=== PATIENT | female | born 2000 | race Caucasian/White ===

== ENCOUNTER 2021-07-24 10:14 | Emergency (ER) | payer OTHER, MEDICAID, SELFPAY ==
[2021-07-24 10:33] VITALS: BP 142/99; PULSE 100; RESP 16; TEMP 36.6; O2SAT 99
--- NOTE | 2021-07-24 10:56 | ED.GENADUL_ITS ---
Discharge Plan Disposition Patient Disposition: HOME Condition: Stable Discharge Details Clinical Impression: URI (upper respiratory infection) Primary Care Provider: Silvia Evans ED Provider: Truong Santana Home Meds and New Rx's Prescriptions: Continued buspirone 10 mg tablet 10 mg PO BID Qty: 180 3RF omeprazole 40 mg capsule,delayed release(DR/EC) 40 mg PO DAILY Qty: 90 3RF ParaGard T 380A 380 square mm intrauterine device 1 device intrauterine ONCE 0RF Rx Instructions: as a single dose Discharge Instructions Instructions: Upper Respiratory Infection (ED) Additional Instructions: Feel free to take [id number] cough and cold medication as indicated on packaging. Please take medications that match your symptoms. Also stay well- hydrated and feel free to take acetaminophen or ibuprofen as needed for discomfort. At this time you are pending a send out PCR Covid test and it is recommended that you quarantine until these test results are available. Feel free to return for any new or significant worsening of symptoms, inability to hydrate, or further concerns you might have. If not improving in the next week please follow-up your primary care provider for reassessment. Stand Alone Forms: PENDING COVID-19 TESTING, Work Release Referrals: Silvia Evans, BOILER MECHANIC [Primary Care Provider] - (If not improving in the next week) Discharge Data Discharge Date/Time-TO BE ENTERED AT DEPARTURE: 07/24/21 11:31 Medical Decision Making Patient presenting for cold-like symptoms for the past 4 days. Reports started out with sore throat then having nasal congestion with postnasal drip causing coughing. She does state significant other with similar symptoms but did home Covid testing and was negative. Exam consistent with viral illness. no signs of deep neck space infection ( Retropharyngeal abscess, Carter's angina, Parapharyngeal space infection, Peritonsillar Abscess (CAMPAIGN CONSULTANT)) or Epiglottitis. Patient has no signs of meningitis an is non- toxic with stable appearance. Lung sounds are clear so I doubt pneumonia. Plan to do strep test along with send out Covid test. Otherwise discussed with patient conservative management of symptoms and return and follow-up precautions. HPI General Mode of arrival: ambulatory . Date/Time Provider Initiated Documentation: 07/24/21 10:39 . Limitations to Documentation: no limitations . Information obtained by: patient . History of Present Illness 20 year old F presents to the emergency department with the chief complaint of cold symptoms, described as moderate and similar to prior episodes, with intensity rated at 6. Quality is described as aching, and is localized to the mouth (throat). Patient reports no radiation. Patient started experiencing this day(s) (4) and it has been constant. improves with No relieving factors improve symptom(s), No exacerbating factors reported . Patient notes fever/chills; denies nausea/vomiting. Patient did receive the following treatments prior to arrival, NSAID Related Data Home Medications Medication Instructions Recorded Confirmed copper 380 square mm intrauterine 1 device INTRAUTERINE ONCE 05/18/21 07/25/21 device (ParaGard T 380A) buspirone 10 mg tablet 10 mg PO BID #180 tab 06/06/21 07/25/21 omeprazole 40 mg capsule,delayed 40 mg PO DAILY #90 cap 06/06/21 07/25/21 release Previous Rx's Medication Instructions Recorded buspirone 10 mg tablet 10 mg PO BID #180 tab 06/06/21 omeprazole 40 mg capsule,delayed 40 mg PO DAILY #90 cap 06/06/21 release Allergies Allergy/AdvReac Type Severity Reaction Status Date / Time cephalexin [From Keflex] Allergy Verified 07/24/21 10:38 prednisone Allergy Verified 07/24/21 10:38 propranolol Allergy Verified 07/24/21 10:38 sertraline [From Zoloft] AdvReac Unverified 07/24/21 10:39 topiramate [From Topamax] AdvReac Verified 07/24/21 10:38 General Stated Complaint: RespSymp VINNIE: 4 Review of Systems Constitutional Constitutional: Reports body ache(s), Reports chills, Reports headache(s) and Reports malaise ENT Ears, Nose, Mouth, and Throat: Reports as per HPI, Denies ear discharge, Denies otalgia, Reports headache(s), Reports nasal congestion, Reports nasal discharge, Denies neck pain, Reports sore throat and Denies throat swelling Cardiovascular Cardiovascular: Denies chest pain and Denies dyspnea Respiratory Respiratory: Reports cough and Denies dyspnea Gastrointestinal Gastrointestinal: Denies abdominal pain and Denies diarrhea Musculoskeletal Musculoskeletal: Denies joint swelling and Denies neck pain Integumentary/Breasts Skin/Breast: Denies rash Neurologic Neurologic: Reports headache(s) Allergic/Immunologic Allergic/Immunologic: Denies throat swelling PFSH All Active Problems (Updated 07/24/21 @ 10:56 by Truong Santana NP) URI (upper respiratory infection) (Acute) Borderline personality disorder (Acute) Anxiety (Chronic) Asthma (Chronic) Medical History (Updated 07/24/21 @ 10:56 by Truong Santana NP) Acid reflux History of MRSA infection Hyperglycemia PTSD (post-traumatic stress disorder) Surgical History (Updated 05/18/21 @ 13:10 by Angela Reynoso RN) S/P tonsillectomy (2015) Family History (Updated 05/25/21 @ 09:02 by Nayana Zarco) Father Alcohol use disorder Hypertension Mother Alcohol use disorder Anxiety Depression Arthritis Asthma Maternal Grandmother Cancer Anxiety Arthritis Depression Diabetes Kidney disease Paternal Grandmother Anxiety Arthritis Depression Asthma Social History (Updated 05/18/21 @ 13:12 by Angela Reynoso RN) Smoking/Tobacco Use Status: Former Tobacco Use Tobacco: How many years used: 3 Quit status: has quit before Second Hand Exposure: Yes Smoking risk assessment performed?: Yes Alcohol Intake: former Drug use: Never Substance use type: does not use Adopted: No Caregiver/Support person: No Foster care: No Household members: significant other Housing: apartment Number of Children: 0 Communication Needs: Corrective Lenses Education Level: high school Do you need help understanding health information?: Never 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 Pets and animals: Yes (2) Pets and animals: cat(s) Sexually active: Yes Do you think of yourself as: bisexual Current gender identity: female What is your relationship status?: living with partner How often do you talk on the phone with friends or family?: three or more times per week How often do you get together with friends or relatives?: once per week Do you belong to any clubs or organized social groups?: no Panel score (0-1 are the most socially isolated patients): 2 What type of physical activity do you participate in: walking Duration: other Details: Walking at work Frequency: 5-6 times per week Jill/Methodist: Other Special jill needs: No Seatbelt use: always Helmet use: Yes Helmet use: always Drive intox or ride w/intox driver guard: No Exam Const General: cooperative, comfortable and no acute distress Orientation: alert and awake HENMT Head: normal to inspection, normocephalic and atraumatic Ears: hearing grossly normal bilaterally and TM's normal bilaterally General nose exam: external nose normal Face and sinus: no erythema Mouth: oral mucosae normal, no drooling, no muffled voice and no trismus Throat: posterior oropharynx normal Neck Neck: normal visual inspection, full ROM, no lymphadenopathy, no meningeal signs, trachea midline and supple Resp Effort & Inspection: normal respiratory effort and able to speak in complete sentences Auscultation: clear to auscultation bilaterally Cardio Rate: regular rate Rhythm: regular rhythm Heart Sounds: S1 normal, S2 normal and normal S1 and S2 Skin General skin exam: no rashes or lesions noted and dry skin (warm) Neuro General: patient alert, patient awake, patient oriented x3, gait normal and moves all extremities Cognition: normal cognition Speech: speech normal Course Vital Signs Vital signs: Vital Signs Temperature 36.6 C 07/24/21 10:33 Pulse 100 H 07/24/21 10:33 Respiratory Rate 16 07/24/21 10:33 Blood Pressure 142/99 H 07/24/21 10:33 Pulse Oximetry 99 07/24/21 10:33 Temperature 36.6 C 07/24/21 10:33 Temperature Source Skin 07/24/21 10:33 Pulse 100 H 07/24/21 10:33 Respiratory Rate 16 07/24/21 10:33 Respiratory Effort 07/24/21 10:40 Respiratory Depth Normal 07/24/21 10:40 Blood Pressure 142/99 H 07/24/21 10:33 Blood Pressure Position Supine 07/24/21 10:33 Pulse Oximetry 99 07/24/21 10:33 Oxygen Delivery Method Room Air 07/24/21 10:33 Oxygen Flow Rate 0 07/24/21 10:33 Pain Level 6 07/24/21 10:33
[2021-07-25 12:00] LABS: COVID-19 RT-PCR UVMMC Result Negative (Negative)
== END 2021-07-24 11:31 | disposition home or self-care (01) ==
PROVIDERS: Emergency Provider Nurse Practitioner Family; PCP Nurse Practitioner
DX: J06.9 Acute upper respiratory infection, unspecified (principal); J02.9 Acute pharyngitis, unspecified; R09.81 Nasal congestion; Z20.822 Contact with and (suspected) exposure to COVID-19
CPT/HCPCS: 87880; 99282; U0003; 87081

== ENCOUNTER 2021-10-19 02:34 | Outpatient (CLI) | payer MEDICAID, SELFPAY | END 2021-10-19 02:35 | disposition home or self-care (01) | LOC: LBO 02:34 | PROVIDERS: PCP Nurse Practitioner; Visit Provider Nurse Practitioner | CPT/HCPCS: 36415; 80053; 80061; 83036; 84443; 85025 ==

== ENCOUNTER 2021-10-20 02:59 | Outpatient (CLI) | payer MEDICAID, SELFPAY ==
[2021-10-20 11:11] LABS: Abs Immature Grans 0.04 10^3/uL (0.0-0.06); Absolute Basophil Count 0.03 10^3/uL (0.0-0.2); Absolute Eosinophil Count 0.13 10^3/uL (0.0-0.7); Absolute Lymphocyte Count 2.73 10^3/uL (1.2-3.4); Absolute Monocyte Count 1.02 10^3/uL (0.1-0.8); Absolute Neutrophil Count 6.22 10^3/uL (1.2-6.7); Basophils % 0.3; Eosinophils % 1.3; HCT 34.9 % (36.0-46.0); HGB 11.1 g/dL (11.2-15.7); Immature Grans % 0.4; Lymphocytes % 26.8; MCH 25.2 pg (27.0-33.0); MCHC 31.8 % (32.0-36.0); MCV 79 fL (80-95); MPV 9.3 fL (8.0-11.0); Neutrophils % 61.2; Platelet Count 285 10^3/uL (130-400); RDW-SD 40.2 fL; WBC 10.17 10^3/uL (4.4-10.8)
[2021-10-20 11:48] LABS: Hemoglobin A1C 5.5 % (<5.7)
[2021-10-20 12:40] LABS: ALT 34 U/L (14-59); AST 17 U/L (15-37); Albumin 3.7 g/dL (3.4-5.0); Alkaline Phosphatase 96 U/L (46-116); Anion Gap 8.4 mmol/L (3-11); BUN 10 mg/dL (7-18); Bilirubin, Total 0.4 mg/dL (0.2-1.0); CO2 27.6 mmol/L (21.0-32.0); CREATININE 0.7 mg/dL (0.55-1.02); Calcium 8.2 mg/dL (8.5-10.1); Calculated LDL 77 mg/dL (<100); Chloride 105 mmol/L (98-107); Cholesterol 138 mg/dL (<200); Glucose 85 mg/dL (74-106); HDL Cholesterol 44 mg/dL (40-60); Potassium 3.9 mmol/L (3.5-5.1); Sodium 141 mmol/L (136-145); TSH (W/Ref FT4) 1.67 uIU/mL (0.36-3.74); Total Protein 6.6 g/dL (6.4-8.2); Triglyceride 86 mg/dL (<150)
== END 2021-10-20 03:00 | disposition home or self-care (01) ==
LOC: LBO 03:00
PROVIDERS: PCP Nurse Practitioner; Visit Provider Nurse Practitioner
DX: E11.9 Type 2 diabetes mellitus without complications (principal); J45.909 Unspecified asthma, uncomplicated; E66.9 Obesity, unspecified; Z13.220 Encounter for screening for lipoid disorders
CPT/HCPCS: 36415; 80053; 80061; 83036; 84443; 85025

== ENCOUNTER 2022-11-14 15:12 | Outpatient (REF) | payer MEDICAID, SELFPAY ==
--- NOTE | 2022-11-14 13:50 | PAPFT_PTH ---
PATIENT: Jed Tejeda LOC: [facility] U#:[id number] AGE/SX: 22/F ROOM: RE11/14/[address]: Emili Butler NP : 2000 BED: DIS: 11/14/2022 SPEC #: [id number] RECD: 11/14/22 17:59 STATUS: OTIS REMarcelo #: [id number] RAFI: 11/14/22 13:[address]: Emili Butler NP DEPT: [facility] Cytology RECD BY: Angeles Stafford ENTERED: 11/14/22 17:59 SP TYPE: PAPFT OTHR DR: Silvia Evans APRN Tissues: 1 - CX/ENDOCX FOR PAP SMEARS Procedures: PAP THIN PREP/UVM Screening HPV DNA PROBE Comments: [id number] (CHLAMYDIA/GC)
[2022-11-15 13:56] LABS: Chlamydia Result Negative (Negative); GC Result Negative (Negative)
== END 2022-11-14 15:13 | disposition home or self-care (01) ==
LOC: LBN 15:12
PROVIDERS: PCP Nurse Practitioner; Visit Provider Nurse Practitioner Women's Health
DX: Z11.3 Encounter for screening for infections with a predominantly sexual mode of transmission (principal); Z12.4 Encounter for screening for malignant neoplasm of cervix
CPT/HCPCS: 87491; 87591; 88142; 87624

== ENCOUNTER 2023-04-11 02:56 | Outpatient (CLI) | payer MEDICAID, SELFPAY ==
[2023-04-11 14:53] LABS: Abs Immature Grans 0.02 10^3/uL (0.0-0.06); Absolute Basophil Count 0.03 10^3/uL (0.0-0.2); Absolute Eosinophil Count 0.07 10^3/uL (0.0-0.7); Absolute Monocyte Count 0.69 10^3/uL (0.1-0.8); Absolute Neutrophil Count 5.92 10^3/uL (1.2-6.7); Basophils % 0.3; Eosinophils % 0.8; HCT 33.9 % (36.0-46.0); HGB 10.8 g/dL (11.2-15.7); Immature Grans % 0.2; Lymphocytes % 27.1; MCH 23.6 pg (27.0-33.0); MCHC 31.9 % (32.0-36.0); MCV 74 fL (80-95); MPV 9.3 fL (8.0-11.0); Monocytes % 7.5; Neutrophils % 64.1; Platelet Count 270 10^3/uL (130-400); RBC 4.58 10^6/uL (3.93-5.22); RDW 15.6 % (11.7-14.6); RDW-SD 41.8 fL; WBC 9.23 10^3/uL (4.4-10.8)
[2023-04-11 15:05] LABS: Glucose,1 Hr (Glucola) 92 mg/dL (80-140)
[2023-04-11 15:18] LABS: Diff Comment RBC Morph Reviewed
[2023-04-11 15:19] LABS: Hypochromasia 1+; Microcytosis 1+; Polychromasia Present
[2023-04-11 15:33] LABS: Panorama Kit Sent via Fed Ex
[2023-04-11 15:35] LABS: ALT 26 U/L (14-59); AST 13 U/L (15-37); Albumin 3.2 g/dL (3.4-5.0); Alkaline Phosphatase 85 U/L (46-116); Anion Gap 10.3 mmol/L (3-11); BUN 5 mg/dL (7-18); Bilirubin, Total 0.2 mg/dL (0.2-1.0); CO2 23.7 mmol/L (21.0-32.0); CREATININE 0.7 mg/dL (0.55-1.02); Calcium 8.8 mg/dL (8.5-10.1); Chloride 102 mmol/L (98-107); Estimated GFR 125.33 (mL/min/1.73m2); Glucose 86 mg/dL (74-106); Potassium 3.3 mmol/L (3.5-5.1); Sodium 136 mmol/L (136-145); Total Protein 6.9 g/dL (6.4-8.2)
[2023-04-12 08:45] LABS: Hepatitis C Ab w Rflx HCV PCR Negative (Negative)
[2023-04-12 09:10] LABS: Hepatitis B Surface Ag Negative (Negative)
[2023-04-12 09:36] LABS: HIV-1/2 Ag & Ab Screen Negative (Negative)
[2023-04-12 10:10] LABS: Varicella IgG Antibody Negative (See Note)
[2023-04-12 10:17] LABS: Rubella IgG Ab (UVM) Negative (See Note)
[2023-04-15 14:16] LABS: Syphilis IgG w/Reflex Nonreactive (Nonreactive)
== END 2023-04-11 02:57 | disposition home or self-care (01) ==
PROVIDERS: PCP Nurse Practitioner; Visit Provider Advanced Practice Midwife
DX: Z34.91 Encounter for supervision of normal pregnancy, unspecified, first trimester; I10 Essential (primary) hypertension
CPT/HCPCS: 36415; 80053; 82950; 86787; 86803; 86850; 86900; 86901; 87340; 87389; 85025; 86762; 86780

== ENCOUNTER 2023-04-11 14:01 | Outpatient (REF) | payer MEDICAID, SELFPAY ==
[2023-04-11 15:04] LABS: COMMENT (LAB VIEW ONLY) 63.49 mg/dL; PROTEIN 6.6 mg/dL
[2023-04-11 15:06] LABS: *AMPHETAMINES SCREEN URINE Negative (Negative); *BARBITURATES SCREEN URINE Negative (Negative); *BENZODIAZEPINES SCREEN URINE Negative (Negative); Cannabinoids THC Negative (Negative); Cocaine Screen,Urine Negative (Negative); METHADONE URINE SCREEN Negative (Negative); OPIATES URINE SCREEN Negative (Negative)
[2023-04-11 15:08] LABS: Tricyclic Antidepressants Negative (Negative)
[2023-04-16 07:25] LABS: Buprenorphine Negative ng/mL (Cutoff: 5.0); Norbuprenorphine Negative ng/mL (Cutoff: 2.5)
== END 2023-04-11 14:02 | disposition home or self-care (01) ==
LOC: LBN 14:01
PROVIDERS: PCP Nurse Practitioner; Visit Provider Advanced Practice Midwife
DX: Z34.91 Encounter for supervision of normal pregnancy, unspecified, first trimester (principal); I10 Essential (primary) hypertension
CPT/HCPCS: 80307; 80348; 82565; 84156; 87086

== ENCOUNTER 2023-05-09 01:51 | Outpatient (CLI) | payer MEDICAID, SELFPAY ==
[2023-05-09 15:38] LABS: Panorama Kit Sent via Fed Ex
== END 2023-05-09 01:52 | disposition home or self-care (01) ==
LOC: LBO 01:51
PROVIDERS: PCP Nurse Practitioner; Visit Provider Obstetrics & Gynecology
DX: Z34.92 Encounter for supervision of normal pregnancy, unspecified, second trimester (principal)
CPT/HCPCS: 36415

== ENCOUNTER 2023-05-10 18:35 | Outpatient (REF) | payer MEDICAID, SELFPAY | END 2023-05-10 18:36 | disposition home or self-care (01) | LOC: LBN 18:35 | PROVIDERS: PCP Nurse Practitioner; Visit Provider Obstetrics & Gynecology | DX: Z34.91 Encounter for supervision of normal pregnancy, unspecified, first trimester (principal) | CPT/HCPCS: 87480; 87510; 87660 ==

== ENCOUNTER 2023-06-05 01:52 | Outpatient (CLI) | payer MEDICAID, SELFPAY ==
[2023-06-05 15:51] LABS: Panorama Kit Sent via Fed Ex
== END 2023-06-05 01:53 | disposition home or self-care (01) ==
LOC: LBO 01:52
PROVIDERS: PCP Nurse Practitioner; Visit Provider Advanced Practice Midwife
DX: O28.5 Abnormal chromosomal and genetic finding on antenatal screening of mother (principal); Z36.89 Encounter for other specified antenatal screening; Z3A.19 19 weeks gestation of pregnancy
CPT/HCPCS: 36415

== ENCOUNTER 2023-08-01 13:41 | Outpatient (REF) | payer MEDICAID, SELFPAY ==
[2023-08-01 15:47] LABS: COVID-19 PCR Negative (Negative); Influenza A PCR Negative (Negative); Influenza B PCR Negative (Negative); RSV PCR Negative (Negative)
[2023-08-01 15:48] LABS: Source Nasopharynx
== END 2023-08-01 13:42 | disposition home or self-care (01) ==
LOC: LBN 13:41
PROVIDERS: PCP Nurse Practitioner; Visit Provider Obstetrics & Gynecology
DX: R50.9 Fever, unspecified (principal)
CPT/HCPCS: 87637

== ENCOUNTER 2023-08-06 03:33 | Outpatient (CLI) | payer MEDICAID, SELFPAY ==
[2023-08-06 15:24] LABS: Abs Immature Grans 0.07 10^3/uL (0.0-0.06); Absolute Basophil Count 0.02 10^3/uL (0.0-0.2); Absolute Eosinophil Count 0.05 10^3/uL (0.0-0.7); Absolute Lymphocyte Count 2.35 10^3/uL (1.2-3.4); Absolute Monocyte Count 0.96 10^3/uL (0.1-0.8); Absolute Neutrophil Count 8.84 10^3/uL (1.2-6.7); Basophils % 0.2; Eosinophils % 0.4; HCT 32.2 % (36.0-46.0); HGB 10.3 g/dL (11.2-15.7); Immature Grans % 0.6; Lymphocytes % 19.1; MCH 22.9 pg (27.0-33.0); MCV 72 fL (80-95); MPV 9.3 fL (8.0-11.0); Monocytes % 7.8; Neutrophils % 71.9; Platelet Count 263 10^3/uL (130-400); RBC 4.49 10^6/uL (3.93-5.22); RDW-SD 41.3 fL; WBC 12.29 10^3/uL (4.4-10.8)
[2023-08-06 15:32] LABS: Glucose,1 Hr (Glucola) 81 mg/dL (80-140)
[2023-08-06 15:36] LABS: Diff Comment RBC Morph Reviewed; Hypochromasia 1+; Microcytosis 1+
[2023-08-06 15:37] LABS: Polychromasia Present
== END 2023-08-06 03:34 | disposition home or self-care (01) ==
LOC: LBO 03:33
PROVIDERS: PCP Nurse Practitioner; Visit Provider Obstetrics & Gynecology
DX: Z34.92 Encounter for supervision of normal pregnancy, unspecified, second trimester (principal)
CPT/HCPCS: 36415; 82950; 85025

== ENCOUNTER 2023-08-20 16:12 | Outpatient (REF) | payer MEDICAID, SELFPAY | END 2023-08-20 16:13 | disposition home or self-care (01) | LOC: LBN 16:12 | PROVIDERS: PCP Nurse Practitioner; Visit Provider Obstetrics & Gynecology | DX: O26.893 Other specified pregnancy related conditions, third trimester (principal); N89.8 Other specified noninflammatory disorders of vagina; Z3A.29 29 weeks gestation of pregnancy | CPT/HCPCS: 87480; 87510; 87660 ==

== ENCOUNTER → 2023-09-04 04:11 | Outpatient (CLI) | payer MEDICAID, SELFPAY ==
--- NOTE | 2023-09-04 07:45 | DI.US_ITS ---
Exam(s) US OB DANIE WEIGHT EXAM: US OB DANIE WEIGHT CLINICAL HISTORY: growth,OBESITY,ABNL GENETIC TESTING,o99.210. TECHNIQUE: Transabdominal obstetrical ultrasound performed. COMPARISON: US POCUS EXAM from 03/14/2023 FINDINGS:: Number of fetuses: One. position: Vertex. Placental location: Anterior, grade 1. no evidence of previa. BIOMETRIC DATA: BPD: 87mm = 34+ 6 weeks HC: 304mm = 33+5 weeks AC: 280mm = 32+ 0 weeks FL: 62 mm = 32+ 0 weeks EFW: 1976 Gms = 58% Composite Age: 33+1 weeks MANDI: 21 Oct 2022 Heart Rate: 137BPM Amniotic fluid index: 19.9 cm. Amount of fluid is visually within normal limits. IMPRESSION: size is mildly above the expected gestational age weight is within the expected range. DATA REPOSITORY:
== END ==
PROVIDERS: PCP Nurse Practitioner; Visit Provider Obstetrics & Gynecology
DX: O99.213 Obesity complicating pregnancy, third trimester (principal); O28.5 Abnormal chromosomal and genetic finding on antenatal screening of mother; Z3A.33 33 weeks gestation of pregnancy
CPT/HCPCS: 76816

== ENCOUNTER 2023-10-02 16:22 | Outpatient (REF) | payer MEDICAID, SELFPAY | END 2023-10-02 16:23 | disposition home or self-care (01) | LOC: LBN 16:22 | PROVIDERS: PCP Nurse Practitioner; Visit Provider Obstetrics & Gynecology | DX: Z34.93 Encounter for supervision of normal pregnancy, unspecified, third trimester (principal) | CPT/HCPCS: 87081 ==

== ENCOUNTER 2023-10-18 01:08 | Outpatient (RCR) | payer MEDICAID, SELFPAY ==
[2023-10-10 13:31] LABS: HGB 9.8 g/dL (11.2-15.7)
[2023-10-10] MEDS: IRON SUCROSE COMPLEX 200 MG in Normal Saline 100 ML 440 MG IVPB (13:45)
[2023-10-10] MEDS: Normal Saline Flush 10 ML SYR IVP (13:45)
[2023-10-18] MEDS: Normal Saline Flush 10 ML SYR IVP (13:06)
[2023-10-18 13:17] LABS: HGB 10.2 g/dL (11.2-15.7)
[2023-10-18] MEDS: IRON SUCROSE COMPLEX 200 MG in Normal Saline 100 ML 440 MG IVPB (14:08)
== END 2023-11-08 23:59 | disposition home or self-care (01) ==
LOC: INF 01:08
PROVIDERS: PCP Nurse Practitioner; Visit Provider Obstetrics & Gynecology
DX: O99.013 Anemia complicating pregnancy, third trimester (principal)
CPT/HCPCS: 36415; 96365; 85018; J1756

== ENCOUNTER 2023-10-22 05:14 | Outpatient (CLI) | payer MEDICAID, SELFPAY ==
[2023-10-22 12:05] LABS: Abs Immature Grans 0.08 10^3/uL (0.0-0.06); Absolute Basophil Count 0.03 10^3/uL (0.0-0.2); Absolute Eosinophil Count 0.03 10^3/uL (0.0-0.7); Absolute Lymphocyte Count 2.28 10^3/uL (1.2-3.4); Absolute Monocyte Count 0.73 10^3/uL (0.1-0.8); Absolute Neutrophil Count 7.63 10^3/uL (1.2-6.7); Basophils % 0.3 %; Eosinophils % 0.3 %; HCT 34.9 % (36.0-46.0); HGB 10.6 g/dL (11.2-15.7); Immature Grans % 0.7 %; Lymphocytes % 21.2 %; MCH 22.3 pg (27.0-33.0); MCHC 30.4 % (32.0-36.0); MCV 73 fL (80-95); Monocytes % 6.8 %; Neutrophils % 70.7 %; Platelet Count 230 10^3/uL (130-400); RBC 4.76 10^6/uL (3.93-5.22); RDW 21.2 % (11.7-14.6); RDW-SD 48.7 fL; WBC 10.78 10^3/uL (4.4-10.8)
[2023-10-22 12:28] LABS: Anisocytosis 2+; Diff Comment RBC Morph Reviewed; Microcytosis 1+
== END 2023-10-22 05:15 | disposition home or self-care (01) ==
LOC: LBO 05:14
PROVIDERS: PCP Nurse Practitioner; Visit Provider Obstetrics & Gynecology
DX: O99.213 Obesity complicating pregnancy, third trimester (principal); Z30.09 Encounter for other general counseling and advice on contraception; Z01.818 Encounter for other preprocedural examination; Z01.812 Encounter for preprocedural laboratory examination; Z3A.38 38 weeks gestation of pregnancy
CPT/HCPCS: 36415; 81511; 86850; 86900; 86901; 85025

== ENCOUNTER 2023-10-24 06:00 | Inpatient (IN) | payer MEDICAID, SELFPAY ==
[2023-10-24] VITALS (15 sets, daily range): BP systolic 120–144; BP diastolic 66–102; PULSE 65–90; RESP 16; TEMP 36.6–36.8; O2SAT 97–100; BMI 48.7
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
[2023-10-24] MEDS: AZITHROMYCIN 500 MG in Normal Saline 250 ML 250 MG IVPB (06:57)
[2023-10-24] MEDS: Lactated Ringers 1,000 ML 200 ML IV (06:57)
--- NOTE | 2023-10-24 06:57 | W.PM.PROGNOT ---
Date of Service Date of service: 10/24/23 Time of Service: 06:57 Subjective Subjective Interval history since last seen: Patient seen and examined and chart reviewed this morning. Patient is 100% certain about delivery with bilateral salpingectomy. All questions were answered. Labs reviewed. Stable hemoglobin at 10.6. Will proceed to the OR for primary section with bilateral salpingectomy. All questions answered. Objective Last Vital Signs Temp 98.2 F 10/24/23 06:36 Pulse 90 10/24/23 06:36 Resp 16 10/24/23 06:36 BP 144/102 H 10/24/23 06:36 Pulse Ox 99 10/24/23 06:36 Time Spent with Patient Time Spent with Patient: <25 minutes Time was spent: preparing to see the patient(eg.review tests), obtaining and/or reviewing separately otained hiistory, referring, communicating with other health healthcare economics manager, indepentently interpreting results and counseling the patient
--- NOTE | 2023-10-24 08:32 | FALL_PTH ---
PATIENT: Jed Tejeda LOC: OBS U#:[id number] AGE/SX: 23/F ROOM: OBS.306 RE10/24/[address]: Vandana Diaz DO : 2000 BED: A DIS: 10/26/2023 SPEC #: [id number] RECD: 10/24/23 12:18 STATUS: OTIS REQ #: [id number] RAFI: 10/24/23 08:[address]: Vandana Diaz DEPT: Surgical Specimen RECD BY: Angeles Stafford ENTERED: 10/24/23 12:18 SP TYPE: Viv STRONG DR: Silvia Evans APRN Tissues: 1 - FALLOPIAN TUBE (STERILIZATION) 2 - FALLOPIAN TUBE (STERILIZATION) Procedures: GROSS AND MICRO LEVEL 2 Comments: [id number]
[2023-10-24] MEDS: Bupivacaine 0.25% Pres-Free 30 ML VIAL (08:37)
[2023-10-24] MEDS: Lactated Ringers 1,000 ML 120 ML IV (09:00)
[2023-10-24] MEDS: Oxytocin/Normal Saline 30 UNIT/500 ML BAG 95 UNITS IV (09:00)
--- NOTE | 2023-10-24 09:00 | W.PM.OBCSECT ---
Date of service: 10/24/23 Time of Service: 09:00 Operative Note Operative Note Delivery Method: Scheduled and Primary NTSV>37 Weeks: Yes DATE OF PROCEDURE: 11/13/23 PRE-OP DIAGNOSES: at 39 weeks, declines labor, undesired fertility POST-OP DIAGNOSES: same PROCEDURE: Primary low-transverse section with bilateral salpingectomy SURGEON: Vandana Diaz Assisting Surgeon: Lindy Bermudez Anesthesia: local and spinal Estimated blood loss (mL): 500 Pathology: other (Bilateral fallopian tubes) Complications: None Patient was transported to: floor Patient's condition: stable Indications: Intrauterine at 39 weeks, declines labor, undesired fertility Findings: Normal-appearing tubes, ovaries, uterus. Delivery of a viable female infant. Weight and Apgars per delivery note Procedure Description: After full informed consent was obtained, and again reviewed permanent sterilization, patient was taken the operating suite with an IV running. She was placed in dorsal seated position and spinal anesthesia administered, tested and found to be adequate. She was placed in the dorsal supine position with leftward tilt. She received clindamycin and Zithromax for surgical site infection prophylaxis. She had pneumatic compression stockings for DVT prophylaxis. She was prepped and draped in the usual sterile fashion after vaginal preparation was performed and Rapp catheter inserted. The lower abdomen was infiltrated with quarter percent Marcaine and a Pfannenstiel skin incision was made and carried down to the underlying fascia. The fascia was incised in the midline and fascial incision extended laterally. The rectus muscles were identified and split in the midline. The peritoneum was identified tented up and entered sharply and the peritoneal incision extended superiorly and inferiorly. At this point the bladder blade was inserted and the vesicouterine peritoneum identified tented up and entered sharply and the bladder flap was created. The bladder blade was reinserted and a low transverse uterine incision was made and extended bluntly laterally. There was some difficulty in delivering the vertex through the incision due to unengaged vertex and copious fluid. With gentle fundal pressure, and a Kiwi vacuum extractor, the vertex was delivered through the incision. There was no evidence of nuchal cord and the shoulders followed with ease. Three-vessel cord was noted and delayed cord clamping performed. The female was then handed off to the pediatric group. At this point cord blood sample was obtained and the placenta was manually expressed from the uterus. The uterus then exteriorized and cleared of all clot and debris. The uterine incision was closed in a single layer closure with 0 Vicryl suture in a running locked fashion and noted to be hemostatic. At this point attention was turned to the left fallopian tube which was elevated and cautery transected for removal and a similar procedure carried out on the right fallopian tube. Pedicles were noted to be hemostatic and the uterus returned to the abdomen. Again both tubal ligation pedicles reinspected and noted to be hemostatic and the uterine incision reinspected and noted to be hemostatic. The abdomen was irrigated with copious amounts of normal saline and at this point the fascial incision was closed using 0 Vicryl suture in a running fashion. Subcutaneous tissue irrigated with copious amounts of normal saline and reapproximated with 3-0 Vicryl. Skin edge reapproximated with 4-0 undyed Monocryl suture. Steri-Strips and sterile dressing were placed. The patient was taken to the center with a Rapp catheter in place draining clear yellow urine EBL: 500 mL Fluids: Crystalloid per anesthesia Complications: None apparent Pathology: Bilateral fallopian tubes.
--- NOTE | 2023-10-24 13:03 | W.ANESPOSTOP ---
Postoperative Evaluation Date, Time and Location Date Performed: 10/24/23 Time Performed: 13:00 Patient Location: Obstetrics Vital Signs Most Recent Imported Vital Signs: Most Recent Vital Signs Temp Pulse Resp BP Pulse Ox 36.6 C 65 16 123/75 100 10/24/23 12:45 10/24/23 12:45 10/24/23 12:45 10/24/23 12:45 10/24/23 12:45 Assessment Mental Status: Awake (Alert & Oriented to Patient Baseline) Airway and Respiratory Function: Patent airway with normal (patient baseline) respiratory exam Cardiovascular Function: Hemodynamically Stable Hydration Status: Adequately Hydrated Nausea & Vomiting: No Nausea or Vomiting Pain: Pain is tolerable per patient Peripheral Nerve Block: Patient did not receive a nerve block
[2023-10-24] MEDS: Ketorolac 30 MG/ML VIAL IVP ×2 (14:03→20:09)
[2023-10-24] MEDS: Normal Saline Flush 10 ML SYR IVP (20:10)
[2023-10-25] VITALS (7 sets, daily range): BP systolic 134–157; BP diastolic 83–96; PULSE 82–84; RESP 18–20; TEMP 36.4–36.7; O2SAT 100
[2023-10-25] MEDS: Ketorolac 30 MG/ML VIAL IVP (03:00)
[2023-10-25 06:36] LABS: Abs Immature Grans 0.07 10^3/uL (0.0-0.06); Absolute Basophil Count 0.03 10^3/uL (0.0-0.2); Absolute Lymphocyte Count 3.05 10^3/uL (1.2-3.4); Absolute Monocyte Count 1.04 10^3/uL (0.1-0.8); Basophils % 0.2 %; Eosinophils % 0.1 %; HCT 30.9 % (36.0-46.0); HGB 9.4 g/dL (11.2-15.7); Immature Grans % 0.5 %; Lymphocytes % 22.3 %; MCH 22.9 pg (27.0-33.0); MCHC 30.4 % (32.0-36.0); MCV 75 fL (80-95); MPV 10.6 fL (8.0-11.0); Monocytes % 7.6 %; Neutrophils % 69.3 %; Platelet Count 212 10^3/uL (130-400); RBC 4.11 10^6/uL (3.93-5.22); RDW-SD 53.9 fL; WBC 13.66 10^3/uL (4.4-10.8)
[2023-10-25 06:45] LABS: Absolute Eosinophil Count 0.01 10^3/uL (0.0-0.7); Absolute Neutrophil Count 9.47 10^3/uL (1.2-6.7)
[2023-10-25 07:04] LABS: Anisocytosis 2+; Diff Comment RBC Morph Reviewed; Hypochromasia 1+
[2023-10-25] MEDS: oxyCODONE 5 mg/Acetaminophen 325 mg TAB PO ×2 (08:40→13:30)
--- NOTE | 2023-10-25 08:47 | W.PM.OBPNV1 ---
Date of service: 10/25/23 Time of Service: 08:00 Assessment and Plan Assessment and plan (1) Status post primary low transverse section: Status: Acute Assessment and plan: Pt doing well POD#1 s/p PCS. Routine care. Subjective Subjective Narrative: Pt is doing well POD#1 s/p scheduled PCS. Her pain is well controlled on oral pain meds and she is tolerating a regular diet w/out n/v. +flatus. Out of bed without difficulty. Breast-feeding is going well. Minimal lochia. Exam Physical Exam Vital signs: Temp Pulse Resp BP Pulse Ox 98.0 F 76 16 120/78 98 10/24/23 20:34 10/24/23 20:34 10/24/23 20:34 10/24/23 20:34 10/24/23 20:34 Vital Signs Reviewed: Yes Constitutional Constitutional: no acute distress and cooperative Detailed HEENT Exam Head: Present normocephalic and atraumatic Respiratory Exam Respiratory Exam: Normal Abdominal Exam Abdomen: Tender (mildly) Comments: Incision covered with clean, dry mepilex dressing. Fundal Exam Fundus: Below Umbilicus and Firm Extremities Exam Extremity Exam: Edema (trace) Detailed Neurological Exam Neurological: Present alert, oriented X3 and CN II-XII intact Results Hemoglobin/Hematocrit: Hgb 9.4 g/dL (11.2-15.7) L 10/25/23 06:00 Hct 30.9 % (36.0-46.0) L 10/25/23 06:00 Abnormal Lab Findings: Abnormal Labs 10/25/23 06:00 WBC 13.66 H Hgb 9.4 L Hct 30.9 L MCV 75 L MCH 22.9 L MCHC 30.4 L RDW 22.0 H Absolute Neutrophils 9.47 H Absolute Monocytes 1.04 H
[2023-10-25] MEDS: Ibuprofen 600 MG TAB PO ×3 (10:17→22:44)
[2023-10-25] MEDS: Omeprazole 20 MG CAPCR 40 MG PO (10:21)
[2023-10-25] MEDS: FLUoxetine 10 MG TAB PO (10:21)
[2023-10-25] MEDS: Acetaminophen 325 MG TAB 650 MG PO (19:11)
[2023-10-25] MEDS: Docusate Sodium 100 MG CAP PO (19:11)
[2023-10-26 01:00] VITALS: BP 150/90; PULSE 88
[2023-10-26] MEDS: Acetaminophen 325 MG TAB 650 MG PO (03:28)
[2023-10-26] MEDS: Ibuprofen 600 MG TAB PO ×2 (04:03→10:12)
[2023-10-26 04:13] VITALS: BP 152/90; PULSE 78; TEMP 36.6
[2023-10-26] MEDS: Docusate Sodium 100 MG CAP PO (07:57)
[2023-10-26] MEDS: FLUoxetine 10 MG TAB PO (07:57)
[2023-10-26] MEDS: Omeprazole 20 MG CAPCR 40 MG PO (07:58)
[2023-10-26 10:12] VITALS: TEMP 36.9
[2023-10-26 10:24] VITALS: BP 141/86; PULSE 77; TEMP 36.9
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
[2023-10-26 12:50] VITALS: BP 144/96; PULSE 90; RESP 18; TEMP 36.6; O2SAT 99
== END 2023-10-26 14:30 | disposition home or self-care (01) | DRG 784 ==
PROVIDERS: Admitting Provider Obstetrics & Gynecology; PCP Nurse Practitioner; Visit Provider Obstetrics & Gynecology
PROC: 10D00Z1 Extraction of Products of Conception, Low, Open Approach (ICD-10-PCS; CPT 59514; principal; 2023-10-24 07:30)
DX: O99.344 Other mental disorders complicating childbirth (principal); O10.02 Pre-existing essential hypertension complicating childbirth; Z37.0 Single live birth; Z3A.39 39 weeks gestation of pregnancy; O99.62 Diseases of the digestive system complicating childbirth; K21.9 Gastro-esophageal reflux disease without esophagitis; F41.1 Generalized anxiety disorder; F42.9 Obsessive-compulsive disorder, unspecified; F60.3 Borderline personality disorder; F43.10 Post-traumatic stress disorder, unspecified; F32.A Depression, unspecified; O99.02 Anemia complicating childbirth; D64.9 Anemia, unspecified; O99.214 Obesity complicating childbirth; E66.01 Morbid (severe) obesity due to excess calories; Z30.2 Encounter for sterilization
CPT/HCPCS: 59514; 58611; 36415; 85025; 88302; J0131; J0456; J0665; J0690; J1100; J1885; J2274; J2371; J2405; J3010

== ENCOUNTER 2024-11-05 13:27 | Emergency (ER) | payer MEDICAID, SELFPAY ==
[2024-11-05 13:37] VITALS: BP 139/89; PULSE 89; RESP 20; TEMP 36.8; O2SAT 98
== END 2024-11-05 14:49 | disposition left against medical advice (07) ==
LOC: ER 14:52
PROVIDERS: PCP Nurse Practitioner
DX: Z53.9 Procedure and treatment not carried out, unspecified reason (principal)